=== PATIENT | male | born 1940 | race Caucasian/White ===

== ENCOUNTER 2016-08-15 01:04 | Emergency (ER) | payer MEDICARE, OTHER | END 2016-08-15 05:00 | disposition home or self-care (01) | LOC: ER1 01:04 | DX: T83.018A Breakdown (mechanical) of other urinary catheter, initial encounter (principal); N40.0 Benign prostatic hyperplasia without lower urinary tract symptoms; Y84.6 Urinary catheterization as the cause of abnormal reaction of the patient, or of later complication, without mention of misadventure at the time of the procedure | CPT/HCPCS: 51702; 99283 ==

== ENCOUNTER 2021-01-03 07:55 | Emergency (ER) | payer MEDICARE, OTHER ==
[~2021-01-03 07:55] MED LIST: AMPICILLIN 500500 MG PO; ASPIRIN CHEWABL81 MG PO; CEFUROXIME500 MG PO; DILTIAZEM ER180 M1 PO; DILTIAZEM ER240 M1 PO; ECOTRIN81 MG PO; FLOMAX 0.4 MG0.4 MG PO; INVANZ 1 GM VIAL1 GM IM; LIPITOR TAB 2020 MG PO; LISINOPRIL-HCT1 EAC1 PO; PROPAFENONE HC150 MG PO
== END 2021-01-03 10:04 | disposition home or self-care (01) ==
LOC: ER1 07:55
DX: R33.9 Retention of urine, unspecified (principal); I10 Essential (primary) hypertension
CPT/HCPCS: 51702; 81001; 87086; 99283

== ENCOUNTER 2021-01-07 10:13 | Emergency (ER) | payer MEDICARE, OTHER | END 2021-01-07 11:37 | disposition home or self-care (01) | LOC: ER1 10:13 | DX: T83.031A Leakage of indwelling urethral catheter, initial encounter (principal); I10 Essential (primary) hypertension | CPT/HCPCS: 51702; 99283 ==

== ENCOUNTER 2021-01-08 02:01 | Emergency (ER) | payer MEDICARE, OTHER ==
[2021-01-08 02:54] LABS: HEMOGLOBIN 16.7 gm/dl (14.0-17.5); RED BLOOD COUNT 5.36 M/UL (4.20-5.50); WHITE BLOOD COUNT 12.3 K/UL (4.5-11.0)
== END 2021-01-08 07:48 ==
LOC: ER1 02:01
PROVIDERS: Family Medicine
DX: N40.1 Benign prostatic hyperplasia with lower urinary tract symptoms (principal); R33.8 Other retention of urine; I48.91 Unspecified atrial fibrillation; I10 Essential (primary) hypertension; Z90.89 Acquired absence of other organs
CPT/HCPCS: 51702; 80053; 85025; 85610; 99284; Q9967

== ENCOUNTER 2021-01-12 10:41 | Emergency (ER) | payer MEDICARE, OTHER ==
[2021-01-12 12:05] LABS: HEMOGLOBIN 14.8 gm/dl (14.0-17.5); RED BLOOD COUNT 4.85 M/UL (4.20-5.50); WHITE BLOOD COUNT 9.8 K/UL (4.5-11.0)
== END 2021-01-12 18:36 | disposition other institution (70) ==
LOC: ER1 10:41
PROVIDERS: Nurse Practitioner
DX: N17.9 Acute kidney failure, unspecified (principal); D69.6 Thrombocytopenia, unspecified; I10 Essential (primary) hypertension; Z79.1 Long term (current) use of non-steroidal anti-inflammatories (NSAID); Z20.822 Contact with and (suspected) exposure to COVID-19
CPT/HCPCS: 80053; 85025; 99284; U0002

== ENCOUNTER 2021-03-20 11:23 | Emergency (ER) | payer MEDICARE, OTHER ==
[2021-03-20 12:43] LABS: HEMOGLOBIN 13.4 gm/dl (14.0-17.5); RED BLOOD COUNT 4.54 M/UL (4.20-5.50); WHITE BLOOD COUNT 6.9 K/UL (4.5-11.0)
[2021-03-20] MEDS ORDERED: CEPHALEXIN500 M1 PO (14:05)
== END 2021-03-20 14:45 | disposition home or self-care (01) ==
LOC: ER1 11:23
PROVIDERS: Emergency Medicine
DX: T83.091A Other mechanical complication of indwelling urethral catheter, initial encounter (principal); N39.0 Urinary tract infection, site not specified
CPT/HCPCS: 80048; 81001; 85025; 87077; 87086; 87186; 99283; J0696